=== PATIENT | male | born 1975 | race Caucasian/White ===

== ENCOUNTER 2021-08-05 18:07 | Emergency (ER) | payer BC ==
[2021-08-05 18:13] VITALS: BP 148/82; PULSE 71; RESP 20; TEMP 97.9
[2021-08-05] MEDS ORDERED: SODIUM CHLORIDE 0.9% 1,000 ML IV STA (18:48)
[2021-08-05] MEDS ORDERED: KETOROLAC 15 MG/ML 1 ML VIAL IVP STA (18:48)
--- NOTE | 2021-08-05 19:09 | ED ---
Abdominal Pain HPI - General Chief Complaint: Abdominal Pain Stated Complaint: side/back pain Time Seen by Provider: 08/05/21 18:40 Source: patient Mode of arrival: ambulatory Limitations: no limitations - History of Present Illness Initial Comments: Patient is a 46-year-old male presenting to emergency Department with complaints of right flank pain over the past 2 days. The pain does radiate from his right flank to the right side of the abdomen down towards the right lower belly. He denies history of kidney stones, denies any abdominal surgical history. He denies any fevers or chills. He does not recall any injuries to his back. He denies any hematuria. He has never had this sort of pain before. He denies any chest pain or shortness of breath. He denies any nausea or vomiting, no diarrhea. He has no further complaints. Upon arrival to the ER his vitals are stable. - Related Data Allergies Allergy/AdvReac Type Severity Reaction Status Date / Time No Known Allergies Allergy Verified 08/05/21 18:13 Review of Systems ROS Statement: Those systems with pertinent positive or pertinent negative responses have been documented in the HPI. ROS Other: All systems not noted in ROS Statement are negative. Past Medical History Past Medical History: No Reported History History of Any Multi-Drug Resistant Organisms: None Reported Past Surgical History: No Surgical Hx Reported Past Psychological History: No Psychological Hx Reported Smoking Status: Never smoker Past Alcohol Use History: None Reported Past Drug Use History: None Reported General Exam - General Exam Comments Initial Comments: GENERAL: Patient is well-developed and well-nourished. Patient is nontoxic and in mild distress. HEAD: Atraumatic, normocephalic. EYES: Pupils equal round and reactive to light, extraocular movements intact, sclera anicteric, conjunctiva are normal. Eyelids were unremarkable. ENT: Nares patent, oropharynx clear without exudates. Moist mucous membranes. NECK: Normal range of motion, supple without lymphadenopathy or JVD. LUNGS: Unlabored respirations. Breath sounds clear to auscultation bilaterally and equal. No wheezes rales or rhonchi. HEART: Regular rate and rhythm without murmurs, rubs or gallops. ABDOMEN: Soft, right flank pain tenderness as well as tenderness along the right side of the abdomen, normoactive bowel sounds. No guarding, no rebound. No masses appreciated. : Deferred MUSCULOSKELETAL: Normal extremities with adequate strength and normal range of motion, no pitting or edema. No clubbing or cyanosis. NEUROLOGICAL: Patient is alert and oriented x 3. Normal speech, normal gait. PSYCH: Normal mood, normal affect. SKIN: Warm, Dry, normal turgor, no rashes or lesions noted. Limitations: no limitations Course Vital Signs 08/05/21 18:11 Temperature 97.9 F Pulse Rate 71 Respiratory 20 Rate Blood Pressure 148/82 O2 Sat by Pulse 99 Oximetry Medical Decision Making - Medical Decision Making Patient is a healthy 46-year-old male here with complaints of right-sided flank pain over the past 2 days. There is some radiation towards the right side of the abdomen. No fevers, his vitals are stable today. No history of abdominal surgeries. Labs today are all unremarkable, no signs of infection, urine is also normal. CT the abdomen and pelvis shows no come beginning process seen today. Patient received fluids and Toradol, reports improvement in his symptoms. Discussed with patient this is most likely muscle skeletal in nature. I recommended continue with ibuprofen at home, heat or ice to the area. He is agreeable to this. He is stable for discharge. Return parameters were discussed with them and they verbalized understanding. Case discussed with Dr. Guzman. - Lab Data Result diagrams: 08/05/21 18:56 08/05/21 18:56 Lab Results 08/05/21 08/05/21 08/05/21 Range/Units 18:56 18:56 18:56 WBC 7.6 (3.8-10.6) k/uL RBC 4.87 (4.30-5.90) m/uL Hgb 15.8 (13.0-17.5) gm/dL Hct 44.5 (39.0-53.0) % MCV 91.3 (80.0-100.0) fL MCH 32.5 (25.0-35.0) pg MCHC 35.6 (31.0-37.0) g/dL RDW 13.5 (11.5-15.5) % Plt Count 292 (150-450) k/uL MPV 7.6 Neutrophils % 49 % Lymphocytes % 35 % Monocytes % 7 % Eosinophils % 6 % Basophils % 1 % Neutrophils # 3.7 (1.3-7.7) k/uL Lymphocytes # 2.6 (1.0-4.8) k/uL Monocytes # 0.5 (0-1.0) k/uL Eosinophils # 0.4 (0-0.7) k/uL Basophils # 0.1 (0-0.2) k/uL Sodium 138 (137-145) mmol/L Potassium 3.9 (3.5-5.1) mmol/L Chloride 106 (98-107) mmol/L Carbon Dioxide 21 L (22-30) mmol/L Anion Gap 11 mmol/L BUN 21 H (9-20) mg/dL Creatinine 1.11 (0.66-1.25) mg/dL Est GFR (CKD-EPI)AfAm >90 (>60 ml/min/1.73 sqM) Est GFR (CKD-EPI)NonAf 81 (>60 ml/min/1.73 sqM) Glucose 97 (74-99) mg/dL Plasma Lactic Acid Darryl (0.7-2.0) mmol/L Calcium 9.8 (8.4-10.2) mg/dL Total Bilirubin 0.4 (0.2-1.3) mg/dL AST 27 (17-59) U/L ALT 32 (4-49) U/L Alkaline Phosphatase 93 (38-126) U/L Total Protein 7.4 (6.3-8.2) g/dL Albumin 4.6 (3.5-5.0) g/dL Lipase 226 (23-300) U/L Urine Color Light Yellow Urine Appearance Clear (Clear) Urine pH 6.5 (5.0-8.0) Ur Specific Anson 1.021 (1.001-1.035) Urine Protein Negative (Negative) Urine Glucose (UA) Negative (Negative) Urine Ketones Negative (Negative) Urine Blood Negative (Negative) Urine Nitrite Negative (Negative) Urine Bilirubin Negative (Negative) Urine Urobilinogen <2.0 (<2.0) mg/dL Ur Leukocyte Esterase Negative (Negative) 08/05/21 Range/Units 18:56 WBC (3.8-10.6) k/uL RBC (4.30-5.90) m/uL Hgb (13.0-17.5) gm/dL Hct (39.0-53.0) % MCV (80.0-100.0) fL MCH (25.0-35.0) pg MCHC (31.0-37.0) g/dL RDW (11.5-15.5) % Plt Count (150-450) k/uL MPV Neutrophils % % Lymphocytes % % Monocytes % % Eosinophils % % Basophils % % Neutrophils # (1.3-7.7) k/uL Lymphocytes # (1.0-4.8) k/uL Monocytes # (0-1.0) k/uL Eosinophils # (0-0.7) k/uL Basophils # (0-0.2) k/uL Sodium (137-145) mmol/L Potassium (3.5-5.1) mmol/L Chloride (98-107) mmol/L Carbon Dioxide (22-30) mmol/L Anion Gap mmol/L BUN (9-20) mg/dL Creatinine (0.66-1.25) mg/dL Est GFR (CKD-EPI)AfAm (>60 ml/min/1.73 sqM) Est GFR (CKD-EPI)NonAf (>60 ml/min/1.73 sqM) Glucose (74-99) mg/dL Plasma Lactic Acid Darryl 0.8 (0.7-2.0) mmol/L Calcium (8.4-10.2) mg/dL Total Bilirubin (0.2-1.3) mg/dL AST (17-59) U/L ALT (4-49) U/L Alkaline Phosphatase (38-126) U/L Total Protein (6.3-8.2) g/dL Albumin (3.5-5.0) g/dL Lipase (23-300) U/L Urine Color Urine Appearance (Clear) Urine pH (5.0-8.0) Ur Specific Anson (1.001-1.035) Urine Protein (Negative) Urine Glucose (UA) (Negative) Urine Ketones (Negative) Urine Blood (Negative) Urine Nitrite (Negative) Urine Bilirubin (Negative) Urine Urobilinogen (<2.0) mg/dL Ur Leukocyte Esterase (Negative) Disposition Clinical Impression: Right flank pain Disposition: HOME SELF-CARE Condition: Stable Instructions (If sedation given, give patient instructions): Low Back Strain (ED) Additional Instructions: Please return to the Emergency Department if symptoms worsen or any other concerns. Recommended ibuprofen for any discomfort, heat and/or ice to the area. If symptoms persist, follow-up with your family doctor. Is patient prescribed a controlled substance at d/c from ED?: No Referrals: Niels Pedro DO [Primary Care Provider] - 1-2 days Time of Disposition: 21:50
[2021-08-05 19:18] LABS: Appearance,Urine Clear (Clear); Bilirubin,Urine Negative (Negative); Blood,Urine Negative (Negative); Color,Urine Light Yellow; Glucose,Urine (UA) Negative (Negative); Ketones,Urine Negative (Negative); Leukocyte Esterase,Urine Negative (Negative); Nitrite,Urine Negative (Negative); PH, Urine 6.5 (5.0-8.0); Protein,Urine Negative (Negative); Specific Gravity,Urine 1.021 (1.001-1.035); Urobilinogen,Urine <2.0 mg/dL (<2.0)
[2021-08-05 19:19] LABS: Basophils # (A) 0.1 k/uL (0-0.2); Basophils % (A) 1 %; Eosinophils # (A) 0.4 k/uL (0-0.7); Eosinophils % (A) 6 %; HCT 44.5 % (39.0-53.0); HGB 15.8 gm/dL (13.0-17.5); Lymphocytes # (A) 2.6 k/uL (1.0-4.8); Lymphocytes % (A) 35 %; MCH 32.5 pg (25.0-35.0); MCHC 35.6 g/dL (31.0-37.0); MCV 91.3 fL (80.0-100.0); Mean Platelet Volume 7.6; Monocytes # (A) 0.5 k/uL (0-1.0); Monocytes % (A) 7 %; Neutrophils # (A) 3.7 k/uL (1.3-7.7); Neutrophils % (A) 49 %; Platelet Count 292 k/uL (150-450); RBC 4.87 m/uL (4.30-5.90); RDW 13.5 % (11.5-15.5); WBC 7.6 k/uL (3.8-10.6)
[2021-08-05 19:26] LABS: ALT 32 U/L (4-49); AST 27 U/L (17-59); African American GFR (CKD) >90 (>60 ml/min/1.73 sqM); Albumin 4.6 g/dL (3.5-5.0); Alkaline Phosphatase 93 U/L (38-126); Anion Gap 11 mmol/L; Blood Urea Nitrogen 21 mg/dL (9-20); Calcium 9.8 mg/dL (8.4-10.2); Carbon Dioxide 21 mmol/L (22-30); Chloride 106 mmol/L (98-107); Glucose 97 mg/dL (74-99); Lipase 226 U/L (23-300); Non-African American GFR(CKD) 81 (>60 ml/min/1.73 sqM); Potassium 3.9 mmol/L (3.5-5.1); Sodium 138 mmol/L (137-145); Total Bilirubin 0.4 mg/dL (0.2-1.3); Total Protein 7.4 g/dL (6.3-8.2)
--- NOTE | 2021-08-05 21:42 | CT ---
EXAMINATION TYPE: CT abdomen pelvis w con DATE OF EXAM: 08/05/2021 COMPARISON: None HISTORY: RT side abdominal pain CT DLP: 1145.1 mGycm Automated exposure control for dose reduction was used. CONTRAST: Performed with IV Contrast, patient injected with 100 mL of Isovue 300. Images obtained from the diaphragm to the floor the pelvis with IV contrast Isovue 100 mL. FINDINGS: Lung bases are clear. There is no pleural effusion. Heart size is normal. Liver spleen stomach pancre as gallbladder appear intact. The bile ducts are not dilated. There is no adrenal mass. Kidneys show satisfactory contrast opacification. There is no hydronephrosi s. Delayed images show normal renal excretion. Ureters are not dilated. Appendix is posterior and oralia ears normal. There is no retroperitoneal adenopathy. Bladder distends smoothly. There is no inguinal hernia. There is no free fluid in the pelvis. There is small density in the upper scrotum on the left side that appears to be undescended testicle. There is no mesenteric edema. There is no ascites or f ree air. There is no bowel obstruction. The lumbar vertebra have normal alignment. There is no compression fracture. Posterior elements are i ntact. The bony pelvis is intact. The hip joints are intact. IMPRESSION: Negative CT scan abdomen and pelvis. Normal appendix. No evidence of renal stone or obstruction. I do not see a cause for right flank pain. Possible left side undescended testicle..
== END 2021-08-05 22:02 | disposition home or self-care (01) ==
LOC: EC 18:07
DX: R10.31 Right lower quadrant pain (principal)
CPT/HCPCS: 99284; 96374; 96361; 36415; 80053; 83605; 83690; 85025; 81003; 74177; J1885; Q9967

== ENCOUNTER → 2022-02-07 | Outpatient (CLI) | payer BC ==
--- NOTE | 2022-02-08 09:40 | XR ---
EXAMINATION TYPE: XR thoracic spine complete DATE OF EXAM: 02/07/2022 COMPARISON: NONE HISTORY: Pain TECHNIQUE: 3 views submitted FINDINGS: Alignment is anatomic. There is no compression deformities. Curvature of the spine. Hypertrophic and degenerative changes of the spine with scoliotic curvature. IMPRESSION: 1. Multilevel hypertrophic and degenerative changes. Correlate for scoliosis.
== END | disposition home or self-care (01) ==
LOC: RADXRYALE 16:47
PROVIDERS: ATTEND Family Medicine
DX: M47.814 Spondylosis without myelopathy or radiculopathy, thoracic region (principal)
CPT/HCPCS: 72072

== ENCOUNTER → 2022-03-15 | Outpatient (CLI) | payer BC ==
--- NOTE | 2022-03-15 06:43 | MR ---
MRI CERVICAL SPINE: CLINICAL HISTORY: Cervicalgia. Disc degeneration. Headache. TECHNIQUE: Multiplanar, multisequence imaging of the cervical spine is performed without IV contrast. COMPARISON: None. FINDINGS: Sagittal images of the cervical spine show the craniocervical junction to appear within nor mal limits. The cervical and upper thoracic spinal cord is normal in caliber and signal. Vertebral alignment is straightened. Multilevel disc desiccation. Mild disc space narrowing C5-C6 level with m ild to moderate anterior spurring otherwise the vertebral body and intravertebral disk heights are no rmal. Small hemangioma involving the posterior C7 vertebra is noted. Axial images show C2-C3 level to appear within normal limits. Axial images at C3-C4 and C4-C5 levels show broad-based left paracentral disc protrusion mildly effac ing the anterior thecal sac and causing mild left-sided neural foraminal narrowing at C3-C4 level. Axial images at C5-C6 level appear within normal limits. Axial images at C6-C7 level shows mild broad-based disc bulge mildly effacing the anterior thecal sac and causing mild to moderate left-sided neural foraminal narrowing. Axial images at C7-T1 level appear within normal limits. IMPRESSION: Loss of normal cervical curvature with mild multilevel degenerative changes as detailed a monse.
== END | disposition home or self-care (01) ==
LOC: RADMRIMAIN 05:58
PROVIDERS: ATTEND Family Medicine
DX: M47.812 Spondylosis without myelopathy or radiculopathy, cervical region (principal); M43.8X2 Other specified deforming dorsopathies, cervical region
CPT/HCPCS: 72141

== ENCOUNTER → 2024-11-25 | Outpatient (CLI) | payer BC ==
--- NOTE | 2024-11-25 20:46 | XR ---
EXAMINATION TYPE: XR cervical spine 5 views comp DATE OF EXAM: 11/25/2024 2:53 PM COMPARISON: 02/22/2022 CLINICAL INDICATION: Male, 49 years old with history of [id number] CERV DD, worsening chronic neck pain FINDINGS: Reversal of the normal cervical lordosis. No predental space widening or prevertebral soft tissue swe lling. [id number] degenerative disc disease and endplate spondylosis C5-C7 levels. No significa nt bony neural foraminal narrowing seen on either side. Mild facet and uncovertebral joint spurring m id to lower cervical spine. Alignment maintained. IMPRESSION: 1. Mild to moderate spondylotic changes especially C5-C7 levels. 2. No acute fracture or malalignment. 3. Reversal of the normal cervical lordosis could be positional or due to muscle spasm. [facility], Workstation: [facility] VALLEJOVirent Energy SystemsTORIBIO, 11/25/2024 8:44 PM
== END | disposition home or self-care (01) ==
LOC: RADXRYALE 13:40
PROVIDERS: ATTEND Physician Assistant
DX: M50.320 Other cervical disc degeneration, mid-cervical region, unspecified level (principal); M47.812 Spondylosis without myelopathy or radiculopathy, cervical region
CPT/HCPCS: 72050